=== PATIENT | male | born 1980 | race Caucasian/White ===

== ENCOUNTER 2018-12-16 11:27 | Emergency (ER) | payer OTHER, SELFPAY ==
[2018-12-16 11:28] VITALS: BP 158/100; PULSE 88; RESP 16; TEMP 36.6; O2SAT 97; BMI 33.8
--- NOTE | 2018-12-16 12:12 | RAD_ITS ---
STUDY: X-RAY - RIGHT HAND REASON FOR EXAM: Male, 38 years old. Crushing injury to the right hand. TECHNIQUE: 3 view(s) of the hand. COMPARISON: None. FINDINGS: Normal radiocarpal articulation. Normal distal radioulnar joint. Normal visualized carpal bones. Normal carpal articulations Normal carpometacarpal articulation of the thumb. Normal second through fifth carpometacarpal joints. Normal metacarpi. Normal metacarpophalangeal joint of the thumb. Normal interphalangeal joint of the thumb. Normal proximal and distal phalanges of the thumb. Normal metacarpophalangeal joints of the second through fifth fingers. Normal proximal and distal interphalangeal joints of the second through fifth fingers. Normal phalanges of the second through fifth fingers. Soft tissue swelling. RAD/Hand Min 3 Views IMPRESSION: Soft tissue swelling. Electronically Signed: Seth Link, at 12:51 EDT , Service support ,
--- NOTE | 2018-12-16 12:22 | ED.VIS.GEN ---
History of Present Illness Chief Complaint: Upper Extremity Injury Informant: Patient Onset: Today Context: Sudden Onset Current Severity: Severe Maximum Severity: Severe Narrative: Patient is a 38-year-old male with no significant past medical history, [id number], presenting with crush injury to his right hand. 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 Patient states it was crushed underneath it for approximately 1 minute until his coworkers to get his head off. Patient was wearing heavy work collapse. Patient significant pain as well as paresthesias and increased movement. Patient also having pain at the base of his thumb. Patient denies any other complaints or injuries. He is unsure when his last tetanus was. Past Medical History - Allergies and Home Meds Allergies/Adverse Reactions: Allergies No Known Allergies Allergy (Verified 12/16/18 11:34) Primary Care Physician: Tyler Hererra, [STAFF PHYSICIAN] - 2 Days for wound check NOT,DEFINED [NON-STAFF] - Past Medical History: None Smoking Status: Former smoker Review of Systems All systems negative except as indicated Musculoskeletal: Reports: Extremity Pain - Injury and pain to right middle finger and right thumb Skin: Reports: Wounds - Palmar aspect of right middle finger Neurological: Reports: Parasthesia - Right middle finger Physical Exam Vital Signs/Narrative: Vital Signs Temp Pulse Resp BP Pulse Ox 12/16/18 11:28 97.9 F 88 16 158/100 H 97 Inital Vital Signs reviewed: Yes General: Well nourished, Well developed Head: Normocephalic, Atraumatic Eyes: Perrl, EOMI ENT: Moist mucous membranes, No rhinorrhea Neck: Supple, Nontender Cardiovascular: Regular rate, Regular rhythm, No murmurs Respiratory: No distress, CTA bilaterally, Chest nontender Abdomen: Soft, Nontender, Nondistended, Normal bowel sounds Extremities: No edema, Tenderness - Deformity with decreased range of motion of the right middle finger, patient is unable to flex or extend at the PIP or DIP, range of motion at the MCP joint is intact, tenderness palpation at the base of the right thumb, - - Normal range of motion of the right thumb\ Skin: No rash, Trauma - Jagged laceration to the palmar aspect of the right middle finger, full-thickness, over PIP and middle phalanges; erythema over base of right thumb, radial aspect with no associated abrasion or laceration. Negative for: Normal color Neurological: Alert, Oriented x3, Cranial nerves II-XII grossly intact, Parasthesia - Subjective paresthesias of the right middle finger however his sensation is intact to light touch. Negative for: Normal Strength, Normal Sensation Psychological: Normal affect, Normal Mood Diagnostic/Tx/Re-eval Diagnostic Data Hand X-Ray 12/16/18 12:12 IMPRESSION: Soft tissue swelling. Electronically Signed: Seth Link, at 12:51 EDT , Service support , - Medical Decision Making Patient is crush injury to his right hand. He is right-hand dominant. Tetanus is ordered. Concern for open fracture patient is given IV Ancef. He is given IV morphine for pain control. X-ray is obtained to evaluate extent of injuries. X-ray is read by radiology as no acute fracture only soft tissue injury however I suspect there might be a small nondisplaced fracture at the distal middle phalanges. Laceration repair is performed with loose approximation because it is a laminated but openly gaping. See procedure note. Discussed with orthopedics on-call for short-term repeat evaluation because patient does have limited range of motion and there is concern for possible tenderness/soft tissue injuries. After patient was anesthetized for laceration repair patient is found to have intact strength of the affected finger. I suspect his initial limited range of motion was secondary to pain and I do not see any obvious tendinous injury during laceration repair. I Spoke with Dr. Nur on the phone who is agreeable with this. Patient will be discharged home with a course of Keflex, Motrin as well as oxycodone as needed. Patient is placed in a volar splint with immobilization of the finger. Patient is given work restrictions this was a Workmen's Compensation injury. Patient is counseled on signs and symptoms requiring return to the emergency room. Patient verbalizes agreement and understand this plan. Patient discharged home in stable and improved condition. Procedures - Lacerations Laceration Length: 18 in Depth: Sub Q Shape: Irregular Prep: Betadine, Chlorhexadine Laceration repair: Debrideded, Digital block - 3 cc of 1% lidocaine without epinephrine, Irrigated, Lidocaine Irrigated (ml): 750 Number of Sutures/Junior: 1 Suture Information: Ethilon, Simple, 4-0 Comment: Wound is irregular and contaminated with grease. It is cleansed copiously as well as soaked in Betadine solution. 1 sutures placed for loose approximation. Patient tolerated procedure well with no obvious complication. Bacitracin and bandage applied afterwards. - Upper Extremity Splints Splint Fabrication: Fabricated Location: Right - Volar hand ED Disposition - Plan for ED Patient: Disposition: Home or Assisted Living Diagnosis: Crushing injury of finger, right, Laceration of finger Instructions: CRUSH INJURY, Hand/Finger, LACERATION, Hand Prescriptions: Ibuprofen [Ibu] 600 mg PO Q6H PRN PRN #20 tab PRN Reason: Pain Prescription Printed Cephalexin [Keflex] 500 mg PO [id number] #28 cap Prescription Printed Oxycodone HCl/Acetaminophen [Percocet 5/325] 1 tab PO Q6H PRN PRN 3 Days #12 tab PRN Reason: Pain Prescription Printed Referrals: NOT,DEFINED [NON-STAFF] - Tyler Herrera DO [STAFF PHYSICIAN] - 2 Days for wound check Additional Instructions: Make sure that your sutures removed in approximately 10 days. It is important that you follow-up with orthopedics for further clearance of your injury. You may need to follow-up with occupational medicine to be cleared to return to work. Keep the splint on until you follow-up with orthopedics. Should you have worsening pain or develop fever please return to the emergency room immediately.
[2018-12-16] MEDS: Diphth,Pertuss(Acell),Tet Vac 0.5 ML Vial IM (12:26)
[2018-12-16] MEDS: Morphine 4 MG/ML Syringe IV (12:27)
--- NOTE | 2018-12-16 13:08 | ED.RN ---
MORPHINE GIVEN PRIOR TO DRUG SCREEN. [facility]. Brionna SPANN RN
[2018-12-16] MEDS: Cefazolin 1 GM/50 ML BAG IV (13:13)
[2018-12-16 15:25] VITALS: BP 147/91; PULSE 79; RESP 16; O2SAT 96
== END 2018-12-16 15:29 | disposition home or self-care (01) ==
PROVIDERS: Emergency Provider Emergency Medicine
DX: S67.21XA Crushing injury of right hand, initial encounter (principal); W23.0XXA Caught, crushed, jammed, or pinched between moving objects, initial encounter; Z87.891 Personal history of nicotine dependence; S61.212A Laceration without foreign body of right middle finger without damage to nail, initial encounter; Z23 Encounter for immunization; Y92.89 Other specified places as the place of occurrence of the external cause; Y99.0 Civilian activity done for income or pay
CPT/HCPCS: 12001; 73130; 90471; 90715; 96365; 96372; 96375; 99283; A4216

== ENCOUNTER 2019-01-18 11:41 | Emergency (ER) | payer OTHER, SELFPAY ==
[2019-01-18 11:42] VITALS: BP 121/89; PULSE 83; RESP 17; TEMP 36.8; O2SAT 98; BMI 32.3
--- NOTE | 2019-01-18 12:10 | CT_ITS ---
STUDY: CT ABDOMEN AND PELVIS WITH CONTRAST REASON FOR EXAM: Male, 38 years old. Right lower quadrant pain for 2 days RADIATION DOSAGE (If Supplied By Facility): CTDIvol = ( 18.64 ) mGy, DLP = ( 1315.55 ) mGycm TECHNIQUE: Transaxial images were obtained from the dome of the diaphragm to the symphysis pubis without oral contrast. IV 100mL Isovue-300 100 was administered. Sagittal and coronal images were reconstructed. Individualized dose optimization techniques were used for this CT. COMPARISON: None. FINDINGS: There is an emphysematous or posterior inflammatory bleb within the left lingula. The visualized portions of the heart are within normal limits. There is decreased attenuation of the liver consistent with steatosis. The gallbladder is contracted. Normal spleen. Normal pancreas. Normal bilateral adrenal glands. Normal right kidney. Normal left kidney. Normal visualized stomach. There is a distended loop of small bowel in the left upper quadrant. There is a mildly distended appearance of the small bowel. There is a thick-walled strandy appearance of the ascending colon especially towards the hepatic flexure. The appendix is retrocecal but appears to be without surrounding inflammatory change and measures up to 6.6 mm which is borderline distended. Normal abdominal aorta. Normal inferior vena cava. Normal retroperitoneum. Bladder is distended. Normal visualized prostate gland. There is a small umbilical hernia containing fat. There are diffuse degenerative changes of the visualized lumbar spine. CT/Abdomen/Pelvis W IV Cont ONLY IMPRESSION: Findings are suspicious for colitis of the ascending colon. There is focal wall thickening and mild edema within the adjacent fat that is seen anteriorly to the colon especially at the level of the hepatic flexure which is away from the retrocecal appendix. There is borderline distended appearance of the appendix without surrounding inflammation doubtful for appendicitis. There is an overall pattern of mild ileus possible enteritis. Electronically Signed: Effie Cruz MD at 15:03 EDT Tel , Service support ,
[2019-01-18] MEDS: 0.9% Normal Saline 1,000 ML 1000 ML IV (12:15)
[2019-01-18 12:59] LABS: Absolute Lymphocyte Count 3.34 X10^3/uL (0.83-4.51); Absolute Neutrophil Count 4.6 X10^3/uL (2.0-7.7); Basophil# 0.05 X10^3/uL; Basophil% 0.5 % (0-1); Eosinophils% 2.2 % (0-5); Lymphocyte # 3.34 X10^3/ul (4.0); Lymphocyte % 36.4 % (19-41); Mean Corp Hgb Conc 33.3 g/dL (32-36); Mean Corpuscular Hgb 28.6 pg (27.0-32.0); Mean Corpuscular Volume 85.9 fL (80-94); Mean Platelet Vol. 9.6 fl (6.2-12.0); Monocyte# 0.98 X10^3/uL; Monocyte% 10.7 % (0-10); NRBC Flagged by Analyzer 0 % (0-5); Neutrophil # 4.59 X10^3/uL (2.7-7.7); Platelet Count 288 K/mm3 (150-450); RBC Distribution Width CV 13.4 % (11.6-14.6); Red Blood Count 5.59 M/mm3 (4.6-6.2); White Blood Count 9.2 K/mm3 (4.4-11.0)
[2019-01-18 13:09] LABS: Anion Gap 6 (5-15); BUN 10 mg/dL (7-18); BUN/Creat Ratio 10.5 RATIO (10-20); Calcium,Total 9.2 mg/dL (8.5-10.1); Chloride 107 mmol/L (98-107); Creatinine, Serum 0.96 mg/dL (0.70-1.30); EST Glomerular Filtration Rate 92 mL/min (>60); Est Glom Filt Rate - Afr Amer 112 mL/min (>60); Estimated Creatinine Clearance 112.27 ml/min; Glucose 92 mg/dL (74-106); Potassium 3.9 mmol/L (3.5-5.1); Sodium Level 143 mmol/L (136-145)
[2019-01-18 13:50] LABS: Bacteria 0 SEEN /hpf (None Seen); Mucous, Urine 0 SEEN /hpf (<or=2+); Red Blood Cells-Urine 0 SEEN /hpf (0-5); Squamous Epithelial Cells - UA 0 SEEN /hpf (0-5); White Blood Cells 0 SEEN /hpf (0-5)
[2019-01-18 14:02] LABS: Color, Urine Yellow (Yellow); Glucose, Dipstick Normal (Normal); Ketone-Dipstick Negative (Negative); Leukocyte Esterase-Dipstick Negative /ul (Negative); Nitrite-Dipstick Negative (Negative); Occult Blood-Urine Negative /ul (Negative); Protein-Dipstick Negative (Negative); Specific Gravity, Urine 1.015 (1.002-1.030); Urine Bilirubin Dipstick Negative (Negative); Urine Clarity Clear (Clear); Urine Urobilinogen Normal (Normal)
[2019-01-18 15:14] VITALS: BP 112/76; PULSE 60; RESP 14; O2SAT 98
--- NOTE | 2019-01-18 15:16 | ED.DCSUM_ITS ---
- ER Visit Summary Date of Service: 01/18/19 Chief Complaint: Abdominal pain History of Present Illness: The patient is a 38 M who presents on Sunday with the complaint of abdominal pain that began evening. It originally felt like a very sharp pain but today the next day was more of a dull ache. He notes it hurts to walk and hurts to hit bumps in the car. Feels bloated but has been having bowel movements. States he has pain when he bends over. He cannot get comfortable. He denies any significant medical problems. He has had no abdominal surgeries. He notes chills but no fevers. No vomiting. He does not wish any pain medication at this time. Physical Examination: Afebrile vital signs are stable Gen: Well-nourished well-developed Head: Normocephalic atraumatic Eyes: Perrl EOMI ENT: TMs clear no rhinorrhea moist mucous membranes Neck: Supple no lymphadenopathy no JVD nontender CVS: Regular rate rhythm no murmurs normal S1-S2 Respiratory: No distress clear to auscultation bilaterally chest nontender Abdomen: Soft there is tenderness and guarding along the right side of his abdomen. Nondistended normal bowel sounds no masses Back: Nontender Extremity: Nontender no edema Skin: Normal color no rash Neuro: alert orientated ?3 CN II-XII intact normal strength sensation reflexes gait cerebellar Psych: Normal affect normal mood Test Results: CBC BMP and urine specimens were normal. CT of the abdomen pelvis demonstrated laboratory changes around the ascending colon. Emergency Department Course and Treatment: Likely colitis of the descending colon. He was placed on Cipro and Flagyl. Given the patient's bloating most likely from a mild ileus. Going to refer him to primary care and have him return if worsening. He was advised that he will need further evaluation after this heals. Impression: 1. Colitis of the ascending colon 2. Mild ileus This note was generated with [employer] dictation software. It may contain incorrect words, spelling, and punctuation that were not noted in review of the chart prior to signing ED Disposition - Plan for ED Patient: Disposition: Home or Assisted Living Instructions: Ileus Prescriptions: Ciprofloxacin [Cipro] 500 mg PO BID #14 tab Prescription Printed metroNIDAZOLE [Flagyl] 500 mg PO Q8H #21 tab Prescription Printed Referrals: Linnea Andrew MD [STAFF PHYSICIAN] - 1-2 Weeks Additional Instructions: Today you have been given a diagnosis of colitis of the ascending colon and a mild ileus. He will eventually need a follow-up colonoscopy. Please take your antibiotics as directed and the entire length of the course For the next couple days I would try more of a liquid diet to allow the bowels a chance to rest. Please return if worsening or concerns.
[2019-01-18 15:33] VITALS: BP 112/76
== END 2019-01-18 15:33 | disposition home or self-care (01) ==
PROVIDERS: Emergency Provider Emergency Medicine
DX: K52.9 Noninfective gastroenteritis and colitis, unspecified (principal); K56.7 Ileus, unspecified; Z72.0 Tobacco use
CPT/HCPCS: 74177; 80048; 81001; 85025; 96360; 99284; J7030; Q9967; A4216

== ENCOUNTER 2019-04-15 07:00 | Outpatient (RCR) | payer OTHER, SELFPAY ==
[2019-02-03 13:45] VITALS: BMI 31.8
--- NOTE | 2019-03-11 13:41 | HP.OTEVAL ---
Patient's Visit Information OANH SHAH is a 39 year old M, referred to Occupational Therapy by ANOOP TRIMBLE, with a diagnosis of laceration of right MF without foreign body/crush injury right hand. Date of Evaluation: 03/11/19 Occupational Therapist: Inessa Luna, OTR/Reddy, CHT - Subjective Subjective: This 39 year old male was seen for OT eval with dx of right hand injury. pt states this happpened at work 2018. 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 pt is back at work but reports he is compensating due to the lack of his right MF ROM. pt would like to get more range of motion and strength back to his hand. - Pain right hand 4 Pain Intensity Range: 1, 6 - ROM MP: right MF 80 left 0/85 PIP: right MF -35/60 left 0/90 DIP: right MF-15/40 left 0/85 - Strength Bag Machine Adjuster: right 60# left 130# Lateral Pinch: right 24# left 26# Tripod Pinch: right 14# left 20# - Edema PIP: right 7.8 left 6.5 - Sensation Sensation Comments: pins and tingling - Quick DASH-Disab of Arm,Shoulder& Hand Quick DASH Score: 21.6650 - Goals Goal:: Pt will demo a increase in right ethylene oxide panelboard operator to 75# or greater to perform ADLs and job tasks by d/c Goal:: Pt will demo a increase in right MF ROM by 40* or greater for pt to form a composite fist for ADLs and work tasks by d/c Goal:: pt will report no pain greater than 1/10 with use of right hand for ADls and work tasks by d/c Goal:: pt will demo understanding of scar mtg by end of 2nd session to decrease scar adhesions. - Rehabilitation General Assessment: Pt demo with limited ability to form a composite fist with dominate hand- pts limited ROM, strength and scar sensitivity limits pts IND. with ADLs and IADLs as well as work tasks- pt demo need for skilled OT services 2x week for 6 weeks to return pt to [facility]- Today therapist ed. pt on AROM/PROM, place and hold and blocking ex as well as scar mtg. PT given handout, demo understanding and agree to POC. Rehabilitation Potential: Excellent - Anticipated Interventions Anticipated Interventions: A/AAROM/PROM, Strengthening, Scar Care, Triggerpoint Release, Desensitization, Sensory Retraining, Wound Care, Modalities, Orthoses, Joint Protection/Energy Conservation, Ergonomic Education - Visit Plan Frequency: 2x /Week Duration: 6 Weeks TEXT: Thank you for the opportunity to evaluate your patient. For Medicare and Medicare HMO plans, please review the plan of care and approve it. It will need to be FAXED BACK to us at [phone] for Medicare purposes. Please let me know if there are questions or concerns regarding this plan of care. Physician Signature: Date:
--- NOTE | 2019-04-15 07:26 | HP.OTDCSUM ---
HP - OT D/C Summary It has been my pleasure to treat OANH SHAH under orders from [employer], for the diagnosis of laceration of right MF without foreign body/crush injury right hand for a total of 11 visit(s). Please see the following information for a summary of their discharge status. - Overall Improvement % Improvement: 90 - Objective Objective/Function: pt demo with right childcare aide strength at 105*. right MF -25/85. pt continues to have numbness- tingling along the radial side of MF. pt has made great gains in therapy and has met OT goals. - Goals Patient Goals: Regain Mobility, Regain Strength, Decrease Pain, Use Hand/Wrist/Arm Normally Again, Be More Independent in ADLS Goal:: Pt will demo a increase in right childcare aide to 75# or greater to perform ADLs and job tasks by d/c Goal:: Pt will demo a increase in right MF ROM by 40* or greater for pt to form a composite fist for ADLs and work tasks by d/c Goal:: pt will report no pain greater than 1/10 with use of right hand for ADls and work tasks by d/c Goal:: pt will demo understanding of scar mtg by end of 2nd session to decrease scar adhesions. - Plan Plan: D/C - D/C Information Discharge Comments: pt made good progress in OT. Pt has been working on scar mtg and PRE. Pt has gained functional composite fist and reports IND. with ADLs and IADls. please see above for measurments. If there are questions or concerns regarding this patient's occupational therapy, please fell free to call me at [phone]. Thank you for the referral of this patient. Sincerely, Inessa Luna, OTR/L, CHT
== END 2019-04-15 07:40 | disposition home or self-care (01) ==
LOC: OT 07:00
PROVIDERS: Family Provider Internal Medicine; PCP Internal Medicine
DX: S61.212D Laceration without foreign body of right middle finger without damage to nail, subsequent encounter (principal); S67.21XD Crushing injury of right hand, subsequent encounter
CPT/HCPCS: 97035; 97110; 97140; 97166; 97530; 97760

== ENCOUNTER → 2019-06-05 09:47 | Outpatient (CLI) | payer OTHER, SELFPAY ==
[2019-02-03 13:45] VITALS: BMI 31.8
[2019-06-05 12:31] LABS: Hematocrit 46.1 % (40-54); Hemoglobin 15.5 g/dL (13.0-16.5); Mean Corp Hgb Conc 33.6 g/dL (32-36); Mean Corpuscular Hgb 28.5 pg (27.0-32.0); Mean Corpuscular Volume 84.7 fL (80-94); Mean Platelet Vol. 9.6 fl (6.2-12.0); Platelet Count 312 K/mm3 (150-450); RBC Distribution Width CV 13.2 % (11.6-14.6); RBC Distribution Width SD 40.3 fl (35.1-43.9); Red Blood Count 5.44 M/mm3 (4.6-6.2); White Blood Count 7.5 K/mm3 (4.4-11.0)
[2019-06-05 12:53] LABS: AST(SGOT) 24 U/L (15-37); Alanine Aminotransfer ALT/SGPT 57 U/L (16-61)
== END ==
PROVIDERS: PCP Internal Medicine; Referring Provider Podiatrist; Visit Provider Podiatrist
DX: B35.1 Tinea unguium (principal)
CPT/HCPCS: 36415; 84450; 84460; 85027

== ENCOUNTER → 2019-08-19 11:54 | Outpatient (CLI) | payer OTHER, SELFPAY ==
[2019-08-19 11:07] VITALS: BMI 32.1
== END ==
PROVIDERS: PCP Internal Medicine; Referring Provider Chiropractor; Visit Provider Chiropractor
DX: M99.03 Segmental and somatic dysfunction of lumbar region (principal)
CPT/HCPCS: 72110

== ENCOUNTER → 2021-12-05 | Outpatient (CLI) | payer OTHER, SELFPAY ==
[2021-12-05 12:03] LABS: Absolute Lymphocyte Count 2.47 X10^3/uL (0.83-4.51); Absolute Neutrophil Count 4.3 X10^3/uL (2.0-7.7); Basophil# 0.04 X10^3/uL; Basophil% 0.5 % (0-1); Eosinophil# 0.07 X10^3/uL; Eosinophils% 0.9 % (0-5); Hematocrit 46.7 % (40-54); Hemoglobin 16.2 g/dL (13.0-16.5); Lymphocyte # 2.47 X10^3/ul (0.83-4.51); Lymphocyte % 32.8 % (19-41); Mean Corp Hgb Conc 34.7 g/dL (32-36); Mean Corpuscular Hgb 30.2 pg (27.0-32.0); Mean Platelet Vol. 9.8 fl (6.2-12.0); Monocyte# 0.62 X10^3/uL; Monocyte% 8.2 % (0-10); NRBC Flagged by Analyzer 0 % (0-5); Neutrophil # 4.28 X10^3/uL (2.7-7.7); Neutrophil % 57.1 % (47-70); Platelet Count 309 K/mm3 (150-450); RBC Distribution Width CV 13.2 % (11.6-14.6); Red Blood Count 5.37 M/mm3 (4.6-6.2); White Blood Count 7.5 K/mm3 (4.4-11.0)
[2021-12-05 12:20] LABS: ALB/GLOB Ratio 1.1 RATIO (0.9-2.4); AST(SGOT) 24 U/L (15-37); Alanine Aminotransfer ALT/SGPT 45 U/L (16-61); Alkaline Phosphatase 49 U/L (45-117); Anion Gap 7 (5-15); BUN 18 mg/dL (7-18); BUN/Creat Ratio 17.8 RATIO (10-20); Chloride 105 mmol/L (98-107); Cholesterol 196 mg/dL (200); Creatinine, Serum 1.01 mg/dL (0.70-1.30); EST Glomerular Filtration Rate 85 mL/min (>60); Est Glom Filt Rate - Afr Amer 103 mL/min (>60); Globulin 3.5 g/dL (2.2-4.2); Glucose 120 mg/dL (74-106); High Density Lipoprotein 48 mg/dL; Protein, Total 7.5 g/dL (6.4-8.2); Sodium Level 140 mmol/L (136-145); Triglycerides 164 mg/dL; Very Low Density Lipoprotein 33 mg/dL (5-40)
== END | disposition home or self-care (01) ==
LOC: BIMLAB 08:51
PROVIDERS: PCP Internal Medicine; Referring Provider Internal Medicine; Visit Provider Internal Medicine
DX: I10 Essential (primary) hypertension (principal)
CPT/HCPCS: 36415; 80053; 80061; 85025

== ENCOUNTER → 2022-02-23 | Outpatient (CLI) | payer OTHER, SELFPAY | END | disposition home or self-care (01) | LOC: SL 11:00 | PROVIDERS: PCP Internal Medicine; Visit Provider Internal Medicine | DX: G47.10 Hypersomnia, unspecified (principal) | CPT/HCPCS: 95806 ==

== ENCOUNTER → 2022-05-17 | Outpatient (CLI) | payer OTHER, SELFPAY ==
[2022-05-17 12:42] LABS: CRP < 2.90 mg/L (0.0-3.0); Erythrocyte Sedimentation Rate 6 mm/hr (0-20); Rheumatoid Factor < 10.0 IU/mL (<15)
[2022-05-18 17:30] LABS: CCP IgG Antibodies 0 units (0-19)
== END | disposition home or self-care (01) ==
LOC: BIMLAB 08:58
PROVIDERS: PCP Internal Medicine; Referring Provider Internal Medicine; Visit Provider Internal Medicine
DX: M19.90 Unspecified osteoarthritis, unspecified site (principal)
CPT/HCPCS: 36415; 85652; 86140; 86200; 86431

== ENCOUNTER → 2022-08-22 | Outpatient (CLI) | payer OTHER, SELFPAY ==
[2022-08-22 15:34] LABS: Absolute Lymphocyte Count 3.18 X10^3/uL (0.83-4.51); Absolute Neutrophil Count 4.7 X10^3/uL (2.0-7.7); Basophil# 0.06 X10^3/uL; Basophil% 0.7 % (0-1); Eosinophil# 0.12 X10^3/uL; Eosinophils% 1.3 % (0-5); Hematocrit 49.3 % (40-54); Hemoglobin 16.6 g/dL (13.0-16.5); Lymphocyte # 3.18 X10^3/ul (0.83-4.51); Lymphocyte % 35.5 % (19-41); Mean Corp Hgb Conc 33.7 g/dL (32-36); Mean Platelet Vol. 9.6 fl (6.2-12.0); Monocyte# 0.84 X10^3/uL; Monocyte% 9.4 % (0-10); NRBC Flagged by Analyzer 0 % (0-5); Neutrophil # 4.72 X10^3/uL (2.7-7.7); Neutrophil % 52.7 % (47-70); Platelet Count 354 K/mm3 (150-450); RBC Distribution Width CV 13.3 % (11.6-14.6); RBC Distribution Width SD 41.9 fl (35.1-43.9); Red Blood Count 5.73 M/mm3 (4.6-6.2)
[2022-08-22 16:02] LABS: ALB/GLOB Ratio 1.3 RATIO (0.9-2.4); AST(SGOT) 28 U/L (15-37); Alanine Aminotransfer ALT/SGPT 47 U/L (16-61); Albumin, Serum 4.4 g/dL (3.2-5.0); Alkaline Phosphatase 52 U/L (45-117); Anion Gap 7 (5-15); BUN 12 mg/dL (7-18); BUN/Creat Ratio 12.1 RATIO (10-20); Calcium,Total 9.5 mg/dL (8.5-10.1); Chloride 104 mmol/L (98-107); Creatinine, Serum 0.99 mg/dL (0.70-1.30); EST Glomerular Filtration Rate 87 mL/min (>60); Est Glom Filt Rate - Afr Amer 105 mL/min (>60); Globulin 3.5 g/dL (2.2-4.2); Glucose 98 mg/dL (74-106); Potassium 3.7 mmol/L (3.5-5.1); Protein, Total 7.9 g/dL (6.4-8.2); Rheumatoid Factor < 10.0 IU/mL (<15); Sodium Level 139 mmol/L (136-145)
[2022-08-22 16:51] LABS: Hepatitis B Surface Antibody Non-Reactive; Hepatitis B Surface Antigen Non-Reactive (Nonreactive); Hepatitis C Antibody Non-Reactive (Nonreactive)
[2022-08-24 13:08] LABS: ANTINUCLEAR ANTIBODIES DIRECT Negative (Negative)
[2022-08-30 17:07] LABS: CCP IgG Antibodies 4 units (0-19); HLA B27 Negative (.)
== END | disposition home or self-care (01) ==
LOC: MTLAB 13:45
PROVIDERS: PCP Internal Medicine; Referring Provider Internal Medicine Rheumatology; Visit Provider Internal Medicine Rheumatology
DX: M06.4 Inflammatory polyarthropathy (principal); I10 Essential (primary) hypertension
CPT/HCPCS: 36415; 80053; 81374; 85025; 86038; 86200; 86431; 86706; 86803; 87340

== ENCOUNTER → 2023-06-08 | Outpatient (CLI) | payer OTHER, SELFPAY ==
[2023-06-08 16:59] LABS: Absolute Lymphocyte Count 3.46 X10^3/uL (0.83-4.51); Absolute Neutrophil Count 3.7 X10^3/uL (2.0-7.7); Basophil# 0.06 X10^3/uL; Basophil% 0.7 % (0-1); Eosinophils% 1.2 % (0-5); Hematocrit 47.8 % (40-54); Hemoglobin 15.8 g/dL (13.0-16.5); Lymphocyte # 3.46 X10^3/ul (0.83-4.51); Lymphocyte % 43.1 % (19-41); Mean Corp Hgb Conc 33.1 g/dL (32-36); Mean Corpuscular Hgb 27.9 pg (27.0-32.0); Mean Corpuscular Volume 84.5 fL (80-94); Mean Platelet Vol. 9.8 fl (6.2-12.0); Monocyte# 0.66 X10^3/uL; Monocyte% 8.2 % (0-10); NRBC Flagged by Analyzer 0 % (0-5); Neutrophil # 3.72 X10^3/uL (2.7-7.7); Neutrophil % 46.6 % (47-70); Platelet Count 356 K/mm3 (150-450); RBC Distribution Width CV 13.5 % (11.6-14.6); Red Blood Count 5.66 M/mm3 (4.6-6.2)
[2023-06-08 17:06] LABS: ALB/GLOB Ratio 1.2 RATIO (0.9-2.4); AST(SGOT) 26 U/L (15-37); Alanine Aminotransfer ALT/SGPT 42 U/L (16-61); Albumin, Serum 4.2 g/dL (3.2-5.0); Alkaline Phosphatase 52 U/L (45-117); Anion Gap 4 (5-15); BUN 11 mg/dL (7-18); BUN/Creat Ratio 10.8 RATIO (10-20); Calcium,Total 9.5 mg/dL (8.5-10.1); Chloride 106 mmol/L (98-107); Cholesterol 208 mg/dL (200); Creatinine, Serum 1.02 mg/dL (0.70-1.30); EST Glomerular Filtration Rate 84 mL/min (>60); Est Glom Filt Rate - Afr Amer 101 mL/min (>60); Globulin 3.4 g/dL (2.2-4.2); Glucose 100 mg/dL (74-106); High Density Lipoprotein 55 mg/dL; PSA,Total - Annual Screen 1.08 ng/mL (0.00-4.00); Potassium 4.2 mmol/L (3.5-5.1); Protein, Total 7.6 g/dL (6.4-8.2); Sodium Level 140 mmol/L (136-145); Triglycerides 120 mg/dL; Very Low Density Lipoprotein 24 mg/dL (5-40)
== END | disposition home or self-care (01) ==
LOC: BIMLAB 15:02
PROVIDERS: PCP Internal Medicine; Visit Provider Internal Medicine
DX: Z00.00 Encounter for general adult medical examination without abnormal findings (principal)
CPT/HCPCS: 36415; 80053; 80061; 84153; 85025; G0103

== ENCOUNTER 2023-12-20 07:22 | Day surgery (SDC) | payer OTHER, SELFPAY ==
--- NOTE | 2023-12-20 07:34 | PCM.PRE.AN2 ---
ASA Classification* ASA Classification ASA Classification: 2 Assessment & Plan Anesthesia* Anesthesia Assessment Anesthesia Assessment: Discussed sedation and/or anesthesia options, risks, benefits, and alternatives with patient/parents/legal guardian/POA. Questions invited. The patient/parents/legal guardian/POA seems to understand and agrees to proceed with anesthesia plan. Reviewed the physical assessment, medical history, allergy history and patient home medications list prior to surgery/procedure/anesthetic and documented any changes. Performed airway and anesthesia risk assessments. Anesthesia Type Anesthesia Type: MAC Anesthesia Focused Assessment* Airway Assessment Mouth opens: >3 cm Mallampati Score: II Focused Labs Anesthesia Preop lab: CBC WBC 8.0 K/mm3 (4.4-11.0) 06/08/23 15:02 RBC 5.66 M/mm3 (4.6-6.2) 06/08/23 15:02 Hgb 15.8 g/dL (13.0-16.5) 06/08/23 15:02 Hct 47.8 % (40-54) 06/08/23 15:02 Plt Count 356 K/mm3 (150-450) 06/08/23 15:02 CHEMISTRY Potassium 4.2 mmol/L (3.5-5.1) 06/08/23 15:02 Sodium 140 mmol/L (136-145) 06/08/23 15:02 BUN 11 mg/dL (7-18) 06/08/23 15:02 Creatinine 1.02 mg/dL (0.70-1.30) 06/08/23 15:02 Glucose 100 mg/dL (74-106) 06/08/23 15:02 COAG Pre-Assessment Diagnosis/Proposed Procedure Planned Operative Procedure(s): COLONOSCOPY-OA Anesthesia History 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 When Was Last Pacemaker Check QUESTION #4 FULL TEXT: You/Your Family Experience fever (hyperthermia) with Anesthesia Last Oral Intake Last Oral intake: Last Oral Intake NPO since Meds taken in AM with sips of water? Meds patient instructed to take am of surgery PONV PONV - electric motor winders assembler: PONV - electric motor winders assembler Female No 12/18/23 13:16 HX of Motion Sickness No 12/18/23 13:16 HX of N/V After Surgery No 12/18/23 13:16 Non-Smoker No 12/18/23 13:16 Duration of Surgery greater No 12/18/23 13:16 than 60 minutes Number of Risk Factors PONV Score Height & Weight Height & Weight: Anesthesia: Height & Weight Height 6 ft 2 in 11/30/23 09:57 Respiratory Assessment Respiratory Assessment - electric motor winders assembler: Respiratory Tract Infection Hx - electric motor winders assembler Hx Respiratory Tract Infection No 12/18/23 13:16 STOP Sleep Apnea STOP Sleep Apnea - electric motor winders assembler: STOP Sleep Apnea - electric motor winders assembler Hx Hypertension Yes: CONTROLLED ON MED 12/18/23 13:16 Hx Sleep Apnea Yes: NON-COMPLIANT 12/18/23 13:16 CPAP No 12/18/23 13:16 BIPAP No 12/18/23 13:16 Do you snore loudly (louder than talking or can be heard Do you often feel tired/ fatigued/ sleepy during daytime? Has anyone observed you stop breathing during sleep? STOP Results Positive 12/18/23 13:16 QUESTION #5 FULL TEXT : Do you snore loudly (louder than talking or can be heard through closed doors)? 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 Specify any problems Hx of Preganancy in last 3 N/A 12/18/23 13:16 Months Nurse Filling Out Transfusion VCHRISTIN 12/18/23 13:16 & Questions: Date: 12/18/23 12/18/23 13:16 Time: 13:17 12/18/23 13:16 Patient unable to answer at this time (ie. confused, unrespo /Reproduction History /Reproductive History - electric motor winders assembler: /Reproductive Hx- electric motor winders assembler Hx Now Gestational Age (in weeks): EDC: Hx Hx Para Hx Section SAB Active Medications Active Medications: Current Medications Generic Name Dose Route Start Last Admin Trade Name Freq PRN Reason Stop Dose Admin Lactated Ringer's 1,000 mls @ 15 mls/hr 12/20/23 07:30 IV .Q48H ALIA PFSH Medical History Wears glasses Alcohol use Injury of head and neck Gastric reflux Chewing tobacco dependence Sleep apnea History of edema Colon cancer screening Preventative health care KARIN (obstructive sleep apnea) Bilateral knee pain Arthritis Flu vaccine need Obesity Tobacco dependence due to chewing tobacco Erectile dysfunction Hypersomnolence Hypertension History of migraine History of fracture of clavicle History of pneumonia Deafness in left ear Home Medications ?Medication ?Instructions ?Recorded ?Last Taken ?Type tadalafil 20 mg tablet 20 mg PO DAILY PRN sexual activity 01/18/23 Unknown Rx #30 tabs amlodipine 10 mg tablet 10 mg PO DAILY #30 TABLETS 09/25/23 Unknown Rx Allergy/AdvReac Type Severity Reaction Status Date / Time No Known Allergies Allergy Verified 12/18/23 13:08 Family History Grandfather Cancer prostate Grandmother Seizures Surgical History History of vasectomy Social History household members: spouse current occupational status: employed Smoking Status: Current every day smoker tobacco type: smokeless tobacco Smokeless tobacco user: chewing tobacco alcohol intake: current alcohol intake frequency: a few times a month Alcohol type: beer substance use type: does not use what type of physical activity do you participate in: none Review of Systems (Anesthesia) ROS Narrative System reviewed and no additional complaints, except as documented.
[2023-12-20] MEDS: Lactated Ringers 1,000 ML 15 ML IV (07:43)
[2023-12-20 07:44] VITALS: BP 113/86; PULSE 72; RESP 18; TEMP 36.3; O2SAT 99; BMI 33.2
--- NOTE | 2023-12-20 08:30 | COLBX_PTH ---
PATIENT: OANH SHAH LOC: EN U#:[id number] AGE/SX: 43/M ROOM: RE12/20/[address]: Dr. Buster Villafana DO : 1980 BED: DIS: 12/20/2023 SPEC #: [id number] RECD: 12/20/23 10:05 STATUS: CAROLYN ADEOLA #: [id number] GUILLERMINA: 12/20/23 08:[address]: Buster Villafana DEPT: SURGICAL PATHOLOGY RECD BY: Dylon Kendrick ENTERED: 12/20/23 11:14 SP TYPE: COLON BX OTHR DR: Dr. Linnea Andrew MD Tissues: Rectum, NOS Procedures: Surgery Specimen Level IV HEADER OPERATION: Colonoscopy with biopsy PRE-OP DIAGNOSIS: Colon cancer screening TISSUE SUBMITTED: Rectal polyp biopsy MICROSCOPIC DIAGNOSIS Rectal polyp, biopsy: Hyperplastic polyp. LAURA/ 12/21/2023 MICROSCOPIC DESCRIPTION Slides are reviewed. GROSS DESCRIPTION Received in fixative is one container labeled with the patient's name and designated Rectal polyp biopsy. The specimen consists of one irregular fragment of light richardson soft tissue that measures 0.3 x 0.3 x 0.1 cm. The specimen is totally submitted in one cassette. 12/20/2023 TC:1 CPT:26851
--- NOTE | 2023-12-20 08:32 | HP.PCM_ITS ---
HPI - General General Date of Admission: 12/20/23 Date of Service: 12/20/23 Chief Complaint: Screening colonoscopy HPI Narrative OANH SHAH, is a 43 M who presents today for screening colonoscopy. He has no significant past medical history. He does have mild hypertension which is controlled with medicine. All other 16 review of systems are negative except as per body mentioned HPI. [facility] Medical History Wears glasses Alcohol use Injury of head and neck Gastric reflux Chewing tobacco dependence Sleep apnea History of edema Colon cancer screening Preventative health care KARIN (obstructive sleep apnea) Bilateral knee pain Arthritis Flu vaccine need Obesity Tobacco dependence due to chewing tobacco Erectile dysfunction Hypersomnolence Hypertension History of migraine History of fracture of clavicle History of pneumonia Deafness in left ear Home Medications ?Medication ?Instructions ?Recorded ?Last Taken ?Type tadalafil 20 mg tablet 20 mg PO DAILY PRN sexual activity 01/18/23 Unknown Rx #30 tabs amlodipine 10 mg tablet 10 mg PO DAILY #30 TABLETS 09/25/23 12/19/23 21:00 Rx Allergy/AdvReac Type Severity Reaction Status Date / Time No Known Allergies Allergy Verified 12/20/23 07:42 Family History Grandfather Cancer prostate Grandmother Seizures Surgical History History of vasectomy Social History household members: spouse current occupational status: employed Smoking Status: Current every day smoker tobacco type: smokeless tobacco Smokeless tobacco user: chewing tobacco alcohol intake: current alcohol intake frequency: a few times a month Alcohol type: beer substance use type: does not use what type of physical activity do you participate in: none Vital Signs Vital Signs Vital Signs: 12/20/23 07:44 12/20/23 07:44 Temperature 97.3 F L Temperature Source Temporal Pulse Rate 72 Respiratory Rate 18 Respiratory Pattern Normal Blood Pressure 113/86 H Blood Pressure Mean 95 Blood Pressure Source Monitor Blood Pressure Position Semi-Fowlers Blood Pressure Location Right Arm Pulse Ox 99 Oxygen Delivery Method Room Air Weight Weight: 245 lb 3.2 oz Body Mass Index (BMI) 33.2 Physical Exam Const alert General Appearance: cooperative Orientation / Consciousness: oriented to person HEENT hearing grossly normal bilaterally Head and Scalp: normal to inspection Face and Sinus: face symmetric Nose: external nose normal Mouth: oral and palatal mucosa normal Eyes conjunctivae normal General Eye: normal appearance of both eyes Neck full ROM General: normal visual inspection Lymph Lymphatic: no lymphadenopathy noted Chest inspection of chest normal and palpation of chest normal Chest: symmetrical chest wall rise Resp normal respiratory effort Effort and Inspection: able to speak in complete sentences Cardio regular rate GI non-distended Percussion: normal to percussion Rectal Exam: deferred Neuro Speech: speech normal Gait (Neuro): normal gait Assessment & Plan Assessment/Plan (1) Colon cancer screening: PLAN: He was explained alternatives, risk, benefits including not withstanding bleeding, infection, sepsis, perforation, need for emergent urgent . He have an ASA of 3.
--- NOTE | 2023-12-20 08:55 | PCM.POST.ANE ---
Anesthesia: Postop Eval I Current Vital Signs Temperature: 97 F Pulse Rate: 75 Blood Pressure: 127/81 Respiratory Rate: 14 Pulse Ox: 94 Oxygen Delivery Method: Room Air Assessment Airway patent: Yes Spontaneous unlabored respirations: Yes Mental status: Awake and Calm nausea: No Vomiting: No Anesthesia Complication: No Fluid Hydration Crystalloid volume administer (ml): 500 Total IV fluid infused: 500 Progress Note Anesthesia document: Postop Eval 1 completed: Yes
[2023-12-20 08:56] VITALS: BP 127/81; PULSE 75; RESP 14; TEMP 36.1; O2SAT 94
--- NOTE | 2023-12-20 08:56 | POSTOPAN2_ITS ---
Anesthesia Postop Eval I Sum Postop Eval Completion status Anesthesia document: Postop Eval 1 completed: Yes Anesthesia Postop Eval I Summary Anesthesia Postop Eval I Summary: Anesthesia Postop Eval I: Assessment Summary Airway patent Yes 12/20/23 08:56 CANINE [email or web address] Spontaneous unlabored Yes 12/20/23 08:56 CANINE DEPUTY.MDOT respirations Mental status Awake,Calm 12/20/23 08:56 CANINE DEPUTY.MDOT nausea No 12/20/23 08:56 CANINE DEPUTY.MDOT Vomiting No 12/20/23 08:56 CANINE [email or web address] Anesthesia Postop Eval I: Fluid Summary Crystalloid volume administer 500 12/20/23 08:56 CANINE DEPUTY.MDOT (ml) Colloids volume administered ( ml) Blood Product volume administered (ml) Total IV fluid infused 500 12/20/23 08:56 CANINE DEPUTY.JEAN Anesthesia Postop Eval I: Summary Notes Anesthesia Complication No 12/20/23 08:56 CANINE DEPUTY.OT Anesthesia Complication Comment: Post-operative progress note Anesthesia: Postop Eval II Evaluation Mental status: Awake and Calm Pain Level: 0 nausea: No Vomiting: No Complications Anesthesia Complication: No
--- NOTE | 2023-12-20 08:56 | PCM.POSTANE2 ---
Anesthesia Postop Eval I Sum Postop Eval Completion status Anesthesia document: Postop Eval 1 completed: Yes Anesthesia Postop Eval I Summary Anesthesia Postop Eval I Summary: Anesthesia Postop Eval I: Assessment Summary Airway patent Yes 12/20/23 08:56 CEMETERY [email or web address] Spontaneous unlabored Yes 12/20/23 08:56 CEMETERY COUNSELOR.MDOT respirations Mental status Awake,Calm 12/20/23 08:56 CEMETERY [email or web address] nausea No 12/20/23 08:56 CEMETERY COUNSELOR.MDOT Vomiting No 12/20/23 08:56 CEMETERY [email or web address] Anesthesia Postop Eval I: Fluid Summary Crystalloid volume administer 500 12/20/23 08:56 CEMETERY COUNSELOR.MDOT (ml) Colloids volume administered ( ml) Blood Product volume administered (ml) Total IV fluid infused 500 12/20/23 08:56 CEMETERY COUNSELOR.JENA Anesthesia Postop Eval I: Summary Notes Anesthesia Complication No 12/20/23 08:56 CEMETERY COUNSELOR.OT Anesthesia Complication Comment: Post-operative progress note Anesthesia: Postop Eval II Evaluation Mental status: Awake and Calm Pain Level: 0 nausea: No Vomiting: No Complications Anesthesia Complication: No
[2023-12-20 09:00] VITALS: BP 113/86; BP 117/81; PULSE 82; RESP 16; TEMP 36.7; O2SAT 96
--- NOTE | 2023-12-20 09:01 | OP.COLON_ITS ---
Patient Name: Lv Moralez Procedure Date: 12/20/2023 8:30 AM Date of : 1980 Age: 43 Procedure: Colonoscopy Indications: Screening for colorectal malignant neoplasm Providers: Buster Villafana DO Medicines: Monitored Anesthesia Care Patient Profile: This is a 43 year old male. Refer to note in patient chart for documentation of history and physical. Last Colonoscopy: none. The patient's first colonoscopy is today. Complications: No immediate complications. Procedure: Pre-Anesthesia Assessment: - Prior to the procedure, a History and Physical was performed, and patient medications and allergies were reviewed. The patient is competent. The risks and benefits of the procedure and the sedation options and risks were discussed with the patient. All questions were answered and informed consent was obtained. Patient identification and proposed procedure were verified by the physician in the pre-procedure area. Mental Status Examination: alert and oriented. Airway Examination: normal oropharyngeal airway and neck mobility. Respiratory Examination: clear to auscultation. CV Examination: normal. Prophylactic Antibiotics: The patient does not require prophylactic antibiotics. Prior Anticoagulants: The patient has taken no anticoagulant or antiplatelet agents except for NSAID medication. ASA Grade Assessment: II - A patient with mild systemic disease. After reviewing the risks and benefits, the patient was deemed in satisfactory condition to undergo the procedure. The anesthesia plan was to use monitored anesthesia care (MAC). Immediately prior to administration of medications, the patient was re-assessed for adequacy to receive sedatives. The heart rate, respiratory rate, oxygen saturations, blood pressure, adequacy of pulmonary ventilation, and response to care were monitored throughout the procedure. The physical status of the patient was re-assessed after the procedure. After I obtained informed consent, the scope was passed under direct vision. Throughout the procedure, the patient's blood pressure, pulse, and oxygen saturations were monitored continuously. The Colonoscope was introduced through the anus and advanced to the terminal ileum. The colonoscopy was performed without difficulty. The patient tolerated the procedure well. The quality of the bowel preparation was adequate. The terminal ileum was photographed. Scope In: 8:40:18 AM Scope Withdrawal Time 0 hours 10 minutes 16 seconds Scope Out: 8:54:13 AM Total Procedure Duration Time 0 hours 13 minutes 55 seconds Findings: The perianal and digital rectal examinations were normal. The terminal ileum appeared normal. A few small-mouthed diverticula were found in the recto-sigmoid colon. A 3 mm polyp was found in the rectum. The polyp was sessile. The polyp was removed with a jumbo cold forceps. Resection and retrieval were complete. Verification of patient identification for the specimen was done. Estimated blood loss was minimal. Dilated rectal veins were seen on endoscopic examination. Impression: - The examined portion of the ileum was normal. - Diverticulosis in the recto-sigmoid colon. - One 3 mm polyp in the rectum, removed with a jumbo cold forceps. Resected and retrieved. - Dilated rectal veins Recommendation: - Repeat colonoscopy in 5 years for surveillance. Ultrasound of the liver regarding dilated rectal veins and possible portal hypertension. - Continue present medications. Procedure Code(s): --- Professional --- 14321, Colonoscopy, flexible; with biopsy, single or multiple CPT copyright 2021 [employer]. All rights reserved. The codes documented in this report are preliminary and upon employee relations administrator review may be revised to meet current compliance requirements. Buster Villafana DO 12/20/2023 9:00:52 AM This report has been signed electronically. Number of Addenda: 0 Note Initiated On: 12/20/2023 8:30 AM
--- NOTE | 2023-12-20 09:01 | OP.CCLET_ITS ---
12/20/2023 Linnea Andrew MD [address] [place] [address] [place] [address] Re : Colonoscopy procedure for Lv Moralez Dear Dr. Andrew This procedure was performed on November. My impressions and recommendations are as follows: Impressions : - The examined portion of the ileum was normal. - Diverticulosis in the recto-sigmoid colon. - One 3 mm polyp in the rectum, removed with a jumbo cold forceps. Resected and retrieved. - Dilated rectal veins Recommendations : - Repeat colonoscopy in 5 years for surveillance. Ultrasound of the liver regarding dilated rectal veins and possible portal hypertension. - Continue present medications. My findings are described in the full procedure note, which is enclosed. If I can be of further assistance, please feel free to contact me at . Sincerely, Buster Villafana, 12/20/2023 9:00:52 AM This report has been signed electronically.
[2023-12-20 09:05] VITALS: BP 113/86; BP 123/90; PULSE 83; RESP 16; O2SAT 97
[2023-12-20 09:10] VITALS: BP 113/86; BP 120/99; PULSE 74; RESP 16; TEMP 36.9; O2SAT 97
[2023-12-20 09:25] VITALS: BP 113/86
--- NOTE | 2023-12-20 13:11 | POSTOPAN2_ITS ---
Anesthesia Postop Eval I Sum Postop Eval Completion status Anesthesia document: Postop Eval 1 completed: Yes Anesthesia Postop Eval I Summary Anesthesia Postop Eval I Summary: Anesthesia Postop Eval I: Assessment Summary Airway patent Yes 12/20/23 08:56 STAFF [email or web address] Spontaneous unlabored Yes 12/20/23 08:56 STAFF [email or web address] respirations Mental status Awake,Calm 12/20/23 08:56 STAFF [email or web address] nausea No 12/20/23 08:56 STAFF PHYSICIAN.MDOT Vomiting No 12/20/23 08:56 STAFF [email or web address] Anesthesia Postop Eval I: Fluid Summary Crystalloid volume administer 500 12/20/23 08:56 STAFF PHYSICIAN.MDOT (ml) Colloids volume administered ( ml) Blood Product volume administered (ml) Total IV fluid infused 500 12/20/23 08:56 STAFF PHYSICIAN.JEAN Anesthesia Postop Eval I: Summary Notes Anesthesia Complication No 12/20/23 08:56 STAFF PHYSICIAN.OT Anesthesia Complication Comment: Post-operative progress note Anesthesia: Postop Eval II Evaluation Mental status: Awake and Calm Pain Level: 0 nausea: No Vomiting: No Complications Anesthesia Complication: No
--- NOTE | 2023-12-20 13:11 | PCM.POSTANE2 ---
Anesthesia Postop Eval I Sum Postop Eval Completion status Anesthesia document: Postop Eval 1 completed: Yes Anesthesia Postop Eval I Summary Anesthesia Postop Eval I Summary: Anesthesia Postop Eval I: Assessment Summary Airway patent Yes 12/20/23 08:56 HORTICULTURAL [email or web address] Spontaneous unlabored Yes 12/20/23 08:56 HORTICULTURAL FARMER.MDOT respirations Mental status Awake,Calm 12/20/23 08:56 HORTICULTURAL FARMER.MDOT nausea No 12/20/23 08:56 HORTICULTURAL FARMER.MDOT Vomiting No 12/20/23 08:56 HORTICULTURAL FARMER.MDOT Anesthesia Postop Eval I: Fluid Summary Crystalloid volume administer 500 12/20/23 08:56 HORTICULTURAL FARMER.MDOT (ml) Colloids volume administered ( ml) Blood Product volume administered (ml) Total IV fluid infused 500 12/20/23 08:56 HORTICULTURAL FARMER.JEAN Anesthesia Postop Eval I: Summary Notes Anesthesia Complication No 12/20/23 08:56 HORTICULTURAL FARMER.OT Anesthesia Complication Comment: Post-operative progress note Anesthesia: Postop Eval II Evaluation Mental status: Awake and Calm Pain Level: 0 nausea: No Vomiting: No Complications Anesthesia Complication: No
== END 2023-12-20 09:29 | disposition home or self-care (01) ==
LOC: EN 07:24 → AC 07:25
PROVIDERS: PCP Internal Medicine; Referring Provider Internal Medicine; Visit Provider Internal Medicine Gastroenterology
PROC: 0DJD8ZZ Inspection of Lower Intestinal Tract, Via Natural or Artificial Opening Endoscopic (ICD-10-PCS; CPT 45378; principal; 2023-12-20 08:25)
DX: Z12.11 Encounter for screening for malignant neoplasm of colon (principal); K62.1 Rectal polyp; F17.220 Nicotine dependence, chewing tobacco, uncomplicated; K57.90 Diverticulosis of intestine, part unspecified, without perforation or abscess without bleeding; I10 Essential (primary) hypertension; Z79.899 Other long term (current) drug therapy
CPT/HCPCS: 45380; 88305; J7120

== ENCOUNTER → 2025-03-27 | Outpatient (CLI) | payer OTHER, SELFPAY ==
[2025-03-27 12:32] LABS: Hematocrit 47.1 % (40-54); Hemoglobin 15.9 g/dL (13.0-16.5); Immature Granulocytes Count 0.020 X10^3/uL (0.0-0.0); Mean Corp Hgb Conc 33.8 g/dL (32-36); Mean Corpuscular Volume 86.6 fL (80-94); Mean Platelet Vol. 9.6 fl (6.2-12.0); NRBC Flagged by Analyzer 0 % (0-5); Platelet Count 306 K/mm3 (150-450); RBC Distribution Width CV 13.4 % (11.6-14.6); RBC Distribution Width SD 41.7 fl (35.1-43.9); Red Blood Count 5.44 M/mm3 (4.6-6.2); White Blood Count 6.7 K/mm3 (4.4-11.0)
[2025-03-27 13:27] LABS: AST(SGOT) 24 U/L (<=37); Alanine Aminotransfer ALT/SGPT 34 U/L (<=46); Albumin, Serum 4.3 g/dL (3.5-5.0); Alkaline Phosphatase 51 U/L (40-129); Anion Gap 12 (5-15); BUN 14 mg/dL (4-19); BUN/Creat Ratio 14.4 RATIO (10-20); Calcium,Total 9.6 mg/dL (7.6-11.0); Carbon Dioxide 25.6 mmol/L (21.0-32.0); Chloride 103 mmol/L (98-108); Cholesterol 210 mg/dL (<=200); Globulin 2.6 g/dL (2.2-4.2); Glucose 98 mg/dL (70-99); Low Density Lipoprotein Calc. 142 mg/dL; PSA,Total - Annual Screen 1.08 ng/mL (0.02-4.00); Potassium 3.6 mmol/L (3.3-5.1); Triglycerides 110 mg/dL; Very Low Density Lipoprotein 22 mg/dL (5-40); cholesterol:hdl ratio screen 4.35
== END | disposition home or self-care (01) ==
LOC: MTLAB 09:57
PROVIDERS: PCP Internal Medicine; Referring Provider Internal Medicine; Visit Provider Internal Medicine
DX: Z00.00 Encounter for general adult medical examination without abnormal findings (principal); I10 Essential (primary) hypertension
CPT/HCPCS: 36415; 80053; 80061; 84153; 85025; G0103